=== PATIENT | female | born 1970 | race African-American/Black ===

== ENCOUNTER → 2019-03-20 | Outpatient (CLI) | payer OTHER ==
[2015-06-18 11:27] VITALS: BP 124/48
[~2019-03-20] MED LIST: ASPI-482 PO; MULT-208 PO
--- NOTE | 2019-03-20 13:02 | KCIC ---
Chest radiograph 03/20/2019 12:00 AM INDICATION: Chronic cough, nonsmoker COMPARISON: Chest radiograph June 15, 2004 TECHNIQUE: Frontal and lateral views of the chest are provided. FINDINGS: The cardiomediastinal silhouette is within normal limits. There are no pleural effusions. There is no pulmonary vascular congestion. There is no pneumothorax. The lungs are clear. No significant osseous abnormality is identified. IMPRESSION: No acute cardiopulmonary process. Electronically signed by: Sarah Paris MD (03/20/2019 12:59 PM) [facility]
== END | disposition home or self-care (01) ==
LOC: KCIC 11:55
PROVIDERS: ATTEND Family Medicine
DX: R05 Cough (principal)
CPT/HCPCS: 71046

== ENCOUNTER → 2019-04-08 | Outpatient (CLI) | payer OTHER ==
[2015-06-18 11:27] VITALS: BP 124/48
--- NOTE | 2019-04-09 11:09 | RAD ---
EXAM: DIGITAL SCREEN BILAT W/CAD HISTORY: routine screening evaluation. COMPARISON: 06/13/15 Bilateral full field craniocaudal, laterally exaggerated craniocaudal and mediolateral oblique images were obtained using digital technique. This study was interpreted with the benefit of Computerized Aided Detection (CAD). Breast Density: The breast parenchyma shows scattered fibroglandular densities. Breast parenchyma level B. FINDINGS: Well-circumscribed nodule in the superior, lateral left breast previous described as cyst is again seen. However there is now a new well-circumscribed nodular density in the retroareolar, slightly superior right breast approximately 5 cm from the nipple. No suspicious microcalcifications or architectural distortion is present in either breast. The visualized axillae are unremarkable. IMPRESSION: Well-circumscribed right breast mass which may represent a cystic lesion, findings for which additional imaging is advised. BI-RADS CATEGORY: 0 INCOMPLETE: NEEDS ADDITIONAL IMAGING EVALUATION AND/OR PRIOR MAMMOGRAMS FOR COMPARISON. RECOMMENDED FOLLOW-UP: ADD ADDITIONAL IMAGING The patient will be contacted to return for additional imaging to include ultrasound evaluation and a supplemental report will follow. PQRS compliance statement: Patient information was entered into a reminder system with a target due date for the next mammogram. Mammography is a sensitive method for finding small breast cancers, but it does not detect them all and is not a substitute for careful clinical examination. A negative mammogram does not negate a clinically suspicious finding and should not result in delay in biopsying a clinically suspicious abnormality. "Our facility is accredited by the [employer] Mammography Program." ANDERSOND
== END | disposition home or self-care (01) ==
LOC: MAMMO 08:42
PROVIDERS: ATTEND Family Medicine
DX: Z12.31 Encounter for screening mammogram for malignant neoplasm of breast (principal); N63.10 Unspecified lump in the right breast, unspecified quadrant
CPT/HCPCS: 77067

== ENCOUNTER → 2019-04-15 | Outpatient (CLI) | payer OTHER ==
[2015-06-18 11:27] VITALS: BP 124/48
--- NOTE | 2019-04-15 11:01 | RAD ---
RIGHT BREAST SONOGRAPHY Clinical indications: Further evaluation of new nodule seen on recent mammogram dated April 08, 2019. FINDINGS: High-resolution sonography of the 12:00 position of the right breast was performed. 4 cm from the nipple, a bilobed anechoic cyst is seen measuring 2.1 cm in greatest dimension. IMPRESSION: Mammographic finding corresponds to a benign cyst. BI-RADS Category 2 benign finding The patient information was entered into the data reminder system with a target due date for the next mammogram of April 09, 2020. He
== END | disposition home or self-care (01) ==
LOC: US 10:28
PROVIDERS: ATTEND Family Medicine
DX: N60.01 Solitary cyst of right breast (principal)
CPT/HCPCS: 76641

== ENCOUNTER → 2019-08-17 | Outpatient (CLI) | payer OTHER ==
[2015-06-18 11:27] VITALS: BP 124/48
--- NOTE | 2019-08-17 09:14 | RAD ---
EXAM: Abdomen sonogram. HISTORY: Pain. TECHNIQUE: Sonographic imaging of the abdomen was performed. COMPARISON: None. FINDINGS: The liver is mildly enlarged. No focal hepatic lesion is seen. The gallbladder is unremarkable. The common bile duct is normal in caliber. The pancreas is partially obscured due to bowel gas. The kidneys, spleen, aorta and inferior vena cava are unremarkable. IMPRESSION: 1. Mild hepatomegaly. 2. Otherwise, unremarkable abdomen sonogram. Electronically signed by: Tonya Ribeiro MD (08/17/2019 9:10 AM) [place] [id number]
== END | disposition home or self-care (01) ==
LOC: US 06:33
PROVIDERS: ATTEND Family Medicine
DX: R16.0 Hepatomegaly, not elsewhere classified (principal)
CPT/HCPCS: 76700

== ENCOUNTER 2019-09-23 20:19 | Emergency (ER) | payer OTHER ==
[~2019-09-23] VITALS: Ht 160 cm; Wt 104.3 kg
[2019-09-23] MEDS ORDERED: DEXAMETHASONE SOD PHOS 4 MG/ML VIAL IVP ONE (21:15)
[2019-09-23] MEDS ORDERED: MECLIZINE HCL 12.5 MG TABLET. PO ONE (21:15)
[2019-09-23] MEDS ORDERED: IV NORMAL SALINE 1000ML BAG 1,000 ML IV ONE ×2 (21:15)
[2019-09-23 21:22] LABS: BASO # 0.1 x10^3/uL (0.0-0.2); BASO % 1 % (0-3); EOS # 0.1 x10^3/uL (0.0-0.7); EOS % 1 % (0-3); HEMATOCRIT 40.7 % (36.0-47.0); HEMOGLOBIN 13.2 g/dL (12.0-15.5); LYMPH # 3.6 x10^3/uL (1.0-4.8); LYMPH % 43 % (24-48); MEAN CORPUSCULAR HEMOGLOBIN 25 pg (25-35); MEAN CORPUSCULAR HGB CONC 32 g/dL (31-37); MEAN CORPUSCULAR VOLUME 78 fL (79-100); MONO # 0.6 x10^3/uL (0.0-1.1); MONO % 8 % (0-9); NEUT % 48 % (31-73); PLATELET COUNT 272 x10^3/uL (140-400); RED BLOOD COUNT 5.23 x10^6/uL (3.50-5.40); RED CELL DISTRIBUTION WIDTH 14.8 % (11.5-14.5); WHITE BLOOD COUNT 8.4 x10^3/uL (4.0-11.0)
[2019-09-23 21:23] LABS: BILIRUBIN,URINE NEGATIVE (NEG); CLARITY,URINE CLEAR; COLOR,URINE YELLOW; NITRITE,URINE NEGATIVE (NEG); PH,URINE 5.5; PROTEIN,URINE NEGATIVE (NEG-TRACE); UROBILINOGEN,URINE 0.2 mg/dL (0.2 mg/dL)
--- NOTE | 2019-09-23 21:26 | PHYS DOC ---
Past Medical History Past Medical History: No Pertinent History, High Cholesterol, Other (Gastritis, Uterine cancer) Additional Past Medical Histor: GASTRITIS, UTERINE CA, CYSTS IN BREASTS Past Surgical History: Hysterectomy Additional Information: Never smoker Alcohol Use: None Drug Use: None Adult General Chief Complaint Chief Complaint: DIZZY/LIGHT HEADED HPI HPI Patient is a 49 year old F who presents to the ED for dizziness. Onset: Saturday09/20/2019. Duration: 30 mins. Patient states she has had 2 episodes since Saturday including today. Associated symptoms: left eye intermittent blurriness and nausea. Pt states that she feels like the "room is spinning". Pt denies LOC, GLOVER, fevers, chills, dysphagia, facial numbness, or weakness. 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 Review of Systems Review of Systems Constitutional: Denies fever or chills Eyes: Denies redness or eye pain, reports intermittent blurry vision in left eye HENT: Denies nasal congestion or sore throat Respiratory: Denies cough or shortness of breath Cardiovascular: Denies chest pain or palpitations GI: Denies abdominal pain; reports nausea : Denies dysuria or hematuria Musculoskeletal: Denies back pain or joint pain Integument: Denies rash or skin lesions Neurologic: Denies headache, focal weakness or sensory changes, reports dizzin ess, Complete systems were reviewed and found to be within normal limits, except as documented in this note. Current Medications Current Medications Current Medications Medications (Trade) Dose Ordered Sig/Vanessa Start Time Stop Time Status Last Admin Dose Admin Dexamethasone Sodium Phosphate (Decadron) 10 mg 1X ONCE 09/23/19 21:15 09/23/19 21:16 DC 09/23/19 21:24 10 MG Meclizine HCl (Antivert) 25 mg 1X ONCE 09/23/19 21:15 09/23/19 21:16 DC 09/23/19 21:23 25 MG Sodium Chloride 1,000 ml @ 1,000 mls/hr 1X ONCE 09/23/19 21:15 09/23/19 22:14 DC 09/23/19 21:24 1,000 MLS/HR Allergies Allergies Allergies Coded Allergies Type Severity Reaction Last Updated Verified No Known Drug Allergies 06/16/15 No Physical Exam Physical Exam Constitutional: Well developed, well nourished, no acute distress, non-toxic appearance HENT: Normocephalic, atraumatic, oropharynx moist Eyes: PERRL, EOMI, conjunctiva normal, no discharge, no nystagmus Neck: Normal range of motion, no tenderness, supple Cardiovascular: Heart rate normal, regular rhythm Lungs & Thorax: Bilateral breath sounds clear to auscultation, no wheezing Abdomen: Soft, no tenderness Skin: Warm, dry, no erythema, no rash Extremities: No tenderness, ROM intact, no edema Neurologic: Alert and oriented X 3, normal motor function, normal sensory function, no focal deficits noted, CN II-XII intact Psychologic: Affect normal, judgement normal Current Patient Data Vital Signs Vital Signs Date Time Temp Pulse Resp B/P (MAP) Pulse Ox O2 Delivery O2 Flow Rate FiO2 09/23/19 21:33 78 18 98 09/23/19 20:25 98.3 161/84 (109) Room Air 98.3 Lab Values Laboratory Tests Test 09/23/19 20:38 09/23/19 21:45 White Blood Count 8.4 x10^3/uL (4.0-11.0) Red Blood Count 5.23 x10^6/uL (3.50-5.40) Hemoglobin 13.2 g/dL (12.0-15.5) Hematocrit 40.7 % (36.0-47.0) Mean Corpuscular Volume 78 fL (79-100) L Mean Corpuscular Hemoglobin 25 pg (25-35) Mean Corpuscular Hemoglobin Concent 32 g/dL (31-37) Red Cell Distribution Width 14.8 % (11.5-14.5) H Platelet Count 272 x10^3/uL (140-400) Neutrophils (%) (Auto) 48 % (31-73) Lymphocytes (%) (Auto) 43 % (24-48) Monocytes (%) (Auto) 8 % (0-9) Eosinophils (%) (Auto) 1 % (0-3) Basophils (%) (Auto) 1 % (0-3) Neutrophils # (Auto) 4.0 x10^3/uL (1.8-7.7) Lymphocytes # (Auto) 3.6 x10^3/uL (1.0-4.8) Monocytes # (Auto) 0.6 x10^3/uL (0.0-1.1) Eosinophils # (Auto) 0.1 x10^3/uL (0.0-0.7) Basophils # (Auto) 0.1 x10^3/uL (0.0-0.2) Urine Color Yellow Urine Clarity Clear Urine pH 5.5 Urine Specific Orange 1.020 Urine Protein Negative mg/dL (NEG-TRACE) Urine Glucose (UA) Negative mg/dL (NEG) Urine Ketones (Stick) Negative mg/dL (NEG) Urine Blood Negative (NEG) Urine Nitrite Negative (NEG) Urine Bilirubin Negative (NEG) Urine Urobilinogen Dipstick 0.2 mg/dL (0.2 mg/dL) Urine Leukocyte Esterase Negative (NEG) Urine RBC 0 /HPF (0-2) Urine WBC Occ /HPF (0-4) Urine Squamous Epithelial Cells Occ /LPF Urine Bacteria 0 /HPF (0-FEW) Urine Mucus Slight /LPF Sodium Level 141 mmol/L (136-145) Potassium Level 3.6 mmol/L (3.5-5.1) Chloride Level 105 mmol/L (98-107) Carbon Dioxide Level 29 mmol/L (21-32) Anion Gap 7 (6-14) Blood Urea Nitrogen 9 mg/dL (7-20) Creatinine 0.6 mg/dL (0.6-1.0) Estimated GFR (Cockcroft-Gault) 127.5 BUN/Creatinine Ratio 15 (6-20) Glucose Level 92 mg/dL (70-99) Calcium Level 8.8 mg/dL (8.5-10.1) Magnesium Level 1.7 mg/dL (1.8-2.4) L Total Bilirubin 0.3 mg/dL (0.2-1.0) Aspartate Amino Transferase (AST) 13 U/L (15-37) L Alanine Aminotransferase (ALT) 19 U/L (14-59) Alkaline Phosphatase 69 U/L (46-116) Creatine Kinase 112 U/L (26-192) Creatine Kinase MB (Mass) 1.3 ng/mL (0.0-3.6) Creatine Kinase MB Relative Index 1.2 % (0-4) Troponin I Quantitative < 0.017 ng/mL (0.000-0.055) Total Protein 6.8 g/dL (6.4-8.2) Albumin 3.5 g/dL (3.4-5.0) Albumin/Globulin Ratio 1.1 (1.0-1.7) Laboratory Tests 09/23/19 20:38 Laboratory Tests 09/23/19 21:45 EKG EKG @2124, NSR @ 75bpm. No STEMI. No ST-T wave abnormalities. Radiology/Procedures Radiology/Procedures PROCEDURE: CT HEAD WO CONTRAST CT HEAD INDICATION: Dizziness COMPARISON: None Available. Exposure: One or more of the following individualized dose reduction techniques were utilized for this examination: 1. Automated exposure control 2. Adjustment of the mA and/or kV according to patient size 3. Use of iterative reconstruction technique TECHNIQUE: 5 mm contiguous axial images were obtained from the skull base to the vertex in both bone and soft tissue algorithm. FINDINGS: No abnormal attenuation within the brain parenchyma. No evidence of acute intracranial hemorrhage. No extra-axial fluid collections. No mass effect or midline shift. Ventricular size is appropriate. Basal cisterns are patent. No fractures identified.Wallace-white differentiation is preserved.Globes and orbits are within normal limits. Paranasal sinuses and mastoid air cells are clear. IMPRESSION: No acute intracranial findings. Electronically signed by: Jhon Martinez MD (09/23/2019 10:12 PM) [facility] Course & Med Decision Making Course & Med Decision Making Pertinent Labs and Imaging studies reviewed. (See chart for details) Patient presents with history of present illness and physical exam concerning for vertigo. No nystagmus noted on initial exam. Patient neurologically intact. No history of trauma. EKG stable. Labs obtained and posted to chart. H&H within normal limits. CT head without acute process. Symptomatic treatment provided with interval improvement of symptoms. Patient stable for discharge with outpatient follow-up with PCP/ENT. ENT referral provided. Discussed findings and plan with patient and family, who acknowledge understanding and agreement. Dragon Disclaimer Dragon Disclaimer This electronic medical record was generated, in whole or in part, using a voice recognition dictation system. Departure Departure Impression: Primary Impression: Dizziness Disposition: 01 HOME, SELF-CARE Condition: STABLE Referrals: Rosalina MEDLEY MD (PCP) ZACARIAS DUFFY MD Patient Instructions: Dizziness, Xiox-or-Lllb, Vertigo, [id number]-fh-Ubbx Scripts Meclizine Hcl (MECLIZINE HCL) 25 Mg Tablet 1 TAB PO PRN TID PRN for DIZZINESS, #30 TAB Prov: TONY ECHOLS DO 09/23/19 TONY ECHOLS DO Sep 23, 2019 21:26
[2019-09-23 21:32] LABS: BACTERIA,URINE 0 /HPF (0-FEW); RBC,URINE 0 /HPF (0-2); SQUAMOUS EPITHELIAL CELL,UR OCC /LPF; WBC,URINE OCC /HPF (0-4)
[2019-09-23 21:33] VITALS: BP 138/71
[2019-09-23 22:11] LABS: CALCIUM 8.8 mg/dL (8.5-10.1); CREATININE 0.6 mg/dL (0.6-1.0); GFR 127.5; POTASSIUM 3.6 mmol/L (3.5-5.1)
--- NOTE | 2019-09-23 22:15 | RAD ---
CT HEAD INDICATION: Dizziness COMPARISON: None Available. Exposure: One or more of the following individualized dose reduction techniques were utilized for this examination: 1. Automated exposure control 2. Adjustment of the mA and/or kV according to patient size 3. Use of iterative reconstruction technique TECHNIQUE: 5 mm contiguous axial images were obtained from the skull base to the vertex in both bone and soft tissue algorithm. FINDINGS: No abnormal attenuation within the brain parenchyma. No evidence of acute intracranial hemorrhage. No extra-axial fluid collections. No mass effect or midline shift. Ventricular size is appropriate. Basal cisterns are patent. No fractures identified.Wallace-white differentiation is preserved.Globes and orbits are within normal limits. Paranasal sinuses and mastoid air cells are clear. IMPRESSION: No acute intracranial findings. Electronically signed by: Jhon Martinez MD (09/23/2019 10:12 PM) [facility]
[2019-09-23 22:19] LABS: ALBUMIN 3.5 g/dL (3.4-5.0); ALBUMIN/GLOBULIN RATIO 1.1 (1.0-1.7); MAGNESIUM 1.7 mg/dL (1.8-2.4); TOTAL BILIRUBIN 0.3 mg/dL (0.2-1.0); TOTAL PROTEIN 6.8 g/dL (6.4-8.2)
[2019-09-23] MEDS ORDERED: MECL-75 PO (22:25)
--- NOTE | 2019-09-24 06:53 | EKG ---
[facility] [address] [place] [address] Test Date: 2019-09-23 Test Time: 21:24:57 Pat Name: ELIAS JONES Department: Room: Gender: F Manager Of Health: : 1970 Requested By: TONY ECHOLS Order Number: [id number] Reading MD: Measurements Intervals [place] Rate: 75 P: 40 WV: 150 QRS: -6 QRSD: 82 T: 0 QT: 396 QTc: 445 Interpretive Statements SINUS RHYTHM LEFTWARD AXIS OTHERWISE NORMAL ECG RI6.01 No previous ECG available for comparison
[2019-09-25] MEDS ORDERED: SERT100T PO (07:36)
[2019-09-25] MEDS ORDERED: BUSP10TA PO (07:36)
[2019-09-25] MEDS ORDERED: CRESTOR5 MG PO (07:36)
[2019-09-25] MEDS ORDERED: OMEP20CA16 PO (07:36)
== END 2019-09-23 22:58 | disposition home or self-care (01) ==
LOC: ER 20:19
DX: R42 Dizziness and giddiness (principal); R11.0 Nausea; H53.8 Other visual disturbances; E78.00 Pure hypercholesterolemia, unspecified
CPT/HCPCS: 36415; 70450; 80053; 81001; 82553; 83735; 84484; 85025; 93005; 96361; 96374; 99285; J1100; J7030; J8597

== ENCOUNTER → 2019-09-25 | Day surgery (SDC) | payer OTHER ==
[~2019-09-25] MED LIST changes: +BUSP10TA PO; +CRESTOR5 MG PO; +IV RINGERS,LACTATED 1000ML 1,000 ML IV SCH; +LIDOCAINE 2% PF 5 ML VIAL. ONE; +MECL-75 PO; +OMEP20CA16 PO; +PROPOFOL 20 ML IV ONE; +SERT100T PO
[2019-09-25 09:24] VITALS: BP 156/92
--- NOTE | 2019-09-28 16:06 | PATHOLOGY ---
[facility] Accession Number: [id number] . 01 Material submitted: . esophagus - DISTAL ESOPHAGUS BIOPSY. Modifiers: distal . 01 Clinical history: . GERD . 02 Diagnosis: Esophagus, distal, biopsy: - Squamocolumnar junctional mucosa; chronically inflamed. - Negative for intestinal metaplasia. (MAP:[facility] 09/28/2019) [facility] 09/28/2019 1241 Local . 02 Electronically signed: . Maximo Argueta MD, Pathologist NPI- [id number] . 01 Gross description: . Received in formalin labeled "Bony, Humble, distal esophagus, rule out Matias's," are multiple segments of ramirez soft tissue measuring 0.4 x 0.3 x 0.1 cm in aggregate dimensions. The specimen is filtered and entirely submitted in cassette A1. (TSD; 09/25/2019) TOB/TOB 09/25/2019 2218 Local . 02 Pathologist provided ICD-10: K20.9 . 02 CPT . 485211 Specimen Comment: A courtesy copy of this report has been sent to [phone], [phone] Specimen Comment: [id number] Specimen Comment: Report sent to / DR MEDLEY Performed at: 01 [facility] [address], [place], [place] [id number] MD Jamey Greene MD Phone: [phone] Performed at: 02 [facility] [address], [place] [id number] MD Kumar Ward MD Phone: [phone]
== END ==
LOC: SURG 07:11
PROVIDERS: ATTEND Internal Medicine Gastroenterology
DX: K21.0 Gastro-esophageal reflux disease with esophagitis (principal); Z72.89 Other problems related to lifestyle; Z90.710 Acquired absence of both cervix and uterus; Z98.51 Tubal ligation status; Z98.890 Other specified postprocedural states
CPT/HCPCS: 43239; 88305; J2001; J2704

== ENCOUNTER → 2021-04-27 | Outpatient (CLI) | payer OTHER ==
[2019-09-25 09:24] VITALS: BP 156/92
[~2021-04-27] MED LIST changes: -IV RINGERS,LACTATED 1000ML 1,000 ML IV SCH; -LIDOCAINE 2% PF 5 ML VIAL. ONE; -PROPOFOL 20 ML IV ONE
--- NOTE | 2021-04-27 12:12 | RAD ---
EXAM: BILATERAL DIGITAL SCREENING MAMMOGRAPHY. HISTORY: Routine mammographic screening. TECHNIQUE: Bilateral full field digital images were obtained in CC and MLO projections. Computer-aide d detection was applied. COMPARISON: 04/08/2019, 06/13/2015. COMPOSITION: B. There are scattered areas of fibroglandular density. FINDINGS: Previously noted masses bilaterally have decreased in size and likely reflect resolving cys ts. Scattered and coarse calcifications are benign. There are no suspicious masses, microcalcificatio ns or architectural distortion. The parenchymal pattern is stable. BI-RADS CATEGORY 2: Benign. RECOMMENDATION: 1. Routine screening mammography in one year. If mammography demonstrates dense breast tissue (heterogenously dense or extremely dense, category C or D), which could hide abnormalities, and if other risk factors for breast cancer have been identifi ed, supplemental screening tests that may be suggested by the ordering physician may be of benefit. D ense breast tissue, in and of itself, is a relatively common condition. Therefore, this information i s not provided to cause undue concern, but rather to raise awareness and to promote discussion with t he referring physician regarding the presence of other risk factors, in addition to dense breast tiss ue. The results of this mammography examination is provided to the patient and referring physician. T he patient should contact their referring physician if any questions or concerns exist regarding this report. PQRS compliance statement - Patient information was entered into a reminder system with a target due date for the next mammogram. "Our facility is accredited by the [employer] Mammography Program." Electronically signed by: Alecia Dumont MD (04/27/2021 12:10 PM) [id number]
== END ==
LOC: MAMMO 08:48
PROVIDERS: ATTEND Family Medicine
DX: Z12.31 Encounter for screening mammogram for malignant neoplasm of breast (principal)
CPT/HCPCS: 77067

== ENCOUNTER 2021-08-01 16:55 | Emergency (ER) | payer OTHER ==
[~2021-08-01] VITALS: Ht 157.5 cm; Wt 115.0 kg
[2021-08-01 18:46] VITALS: BP 152/106
--- NOTE | 2021-08-01 19:05 | ED.ADGEN ---
Past Medical History Past Medical History: No Pertinent History, High Cholesterol, Other Additional Past Medical Histor: GASTRITIS, UTERINE CA, CYSTS IN BREASTS Past Surgical History: Hysterectomy Smoking Status: Never Smoker Alcohol Use: None Drug Use: None General Adult EDM: Chief Complaint: ASTHMA HPI: HPI: Patient is a 50 year old female coming in for asthma exacerbation starting about 9 hours prior to arrival. 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 States cough is o ccasionally productive. Denies any fevers or chills. States that she feels like she has some occasional wheezes. Has a history of persistent asthma with frequent exacerbations. Has not butyryl nebulizer at home that she says made her feel worse. Is currently taking a rescue inhaler and Religion. Has had both of her Covid vaccines. No other complaints. Review of Systems: Review of Systems: All other systems within normal limits except for as noted in the HPI Current Medications: Current Medications Medications (Trade) Dose Ordered Sig/Vanessa Start Time Stop Time Status Last Admin Dose Admin Albuterol/ Ipratropium (Duoneb) 3 ml 1X ONCE 08/01/21 19:15 08/01/21 19:16 DC 08/01/21 19:37 3 ML Prednisone (Prednisone) 60 mg 1X ONCE 08/01/21 19:15 08/01/21 19:16 DC 08/01/21 19:11 60 MG Allergies: Allergies: Allergies Coded Allergies Type Severity Reaction Last Updated Verified No Known Drug Allergies 09/25/19 No Physical Exam: PE: Constitutional: Well developed, well nourished, no acute distress, non-toxic appearance. [] HENT: Normocephalic, atraumatic, bilateral external ears normal, nose normal. [] Eyes: PERRLA, conjunctiva normal, no discharge. [] Neck: No rigidity, supple, no stridor. [] Cardiovascular: Regular rate and rhythm, brisk cap refill [] Lungs & Thorax: Non labored symmetric respirations, no tachypnea or respiratory distress. No wheezes or rhonchi [] Abdomen: Soft, nondistended. Skin: Warm, dry, no erythema, no rash. [] Back: Unremarkable Extremities: No deformities, range of motion grossly intact, no lower extremity edema [] Neurologic: Alert and oriented X 3, no focal deficits noted. [] Psychologic: Affect normal, judgement normal, mood normal. [] Current Patient Data: Labs: Laboratory Tests Test 08/01/21 18:43 POC Urine HCG, Qualitative Hcg negative (Negative) Vital Signs: Vital Signs Date Time Temp Pulse Resp B/P (MAP) Pulse Ox O2 Delivery O2 Flow Rate FiO2 08/01/21 21:00 87 16 99 Room Air 08/01/21 18:46 98.4 152/106 (121) 98.4 EKG: EKG: [] Heart Score: C/O Chest Pain: No Risk Factors: Risk Factors: DM, Current or recent (<one month) smoker, HTN, HLP, family history of CAD, obesity. Risk Scores: Score 0 - 3: 2.5% MACE over next 6 weeks - Discharge Home Score 4 - 6: 20.3% MACE over next 6 weeks - Admit for Clinical Observation Score 7 - 10: 72.7% MACE over next 6 weeks - Early Invasive Strategies Radiology/Procedures: Radiology/Procedures: [facility] [address] [place], [place] [id number] IMAGING REPORT Signed PATIENT: ELIAS JONES MACCOUNT: [id number] : 1970 LOCATION: ER AGE: 50 SEX: F EXAM STATUS: REG ER ORD. PHYSICIAN: DARLENE ARANGO MD REASON: asthma, cough PROCEDURE: PORTABLE CHEST 1V EXAM: CHEST ONE VIEW. HISTORY: Asthma, cough. COMPARISON: 03/20/2019. FINDINGS: A frontal view of the chest is obtained. There are no confluent infiltrates. There is no pneumothorax or pleural effusion . The heart is not enlarged. The hemidiaphragms are not flattened. IMPRESSION: 1. No confluent infiltrates. Electronically signed by: Alecia Dumont MD (08/01/2021 9:03 PM) [id number] DICTATED and SIGNED BY: JING DUMONT MD DATE: 08/01/21 [id number] 0 [] Course & Med Decision Making: Course & Med Decision Making Pertinent Labs and Imaging studies reviewed. (See chart for details) [] Dragon Disclaimer: Dragon Disclaimer: This electronic medical record was generated, in whole or in part, using a voice recognition dictation system. Departure Departure Impression: Primary Impression: Asthma exacerbation Disposition: HOME / SELF CARE / HOMELESS Condition: IMPROVED Referrals: Rosalina MEDLEY MD (PCP) Patient Instructions: Asthma, Acute Bronchospasm Scripts Prednisone (PREDNISONE) 50 Mg Tablet 1 TAB PO DAILY for steroid for 4 Days, #4 TAB Prov: DARLENE ARANGO MD 08/01/21 Azithromycin (ZITHROMAX) 250 Mg Tablet 1 PKG PO UD for antibiotic for 5 Days, #6 TAB Prov: DARLENE ARANGO MD 08/01/21 DARLENE ARANGO MD Aug 01, 2021 19:05
[2021-08-01] MEDS ORDERED: predniSONE 20 MG TABLET PO ONE (19:15)
[2021-08-01] MEDS ORDERED: IPRATRPIUM/ALBUTEROL 0.5/2.5MG 3 ML NEBU. NEB ONE ×2 (19:15)
[2021-08-01] MEDS ORDERED: AZIT250T PO (20:56)
[2021-08-01] MEDS ORDERED: PRED50TA PO (20:56)
--- NOTE | 2021-08-01 21:05 | RAD ---
EXAM: CHEST ONE VIEW. HISTORY: Asthma, cough. COMPARISON: 03/20/2019. FINDINGS: A frontal view of the chest is obtained. There are no confluent infiltrates. There is no pneumothorax or pleural effusion. The heart is not en larged. The hemidiaphragms are not flattened. IMPRESSION: 1. No confluent infiltrates. Electronically signed by: Alecia Dumont MD (08/01/2021 9:03 PM) [id number]
== END 2021-08-01 21:09 | disposition home or self-care (01) ==
LOC: ER 16:55
DX: J45.901 Unspecified asthma with (acute) exacerbation (principal); E78.00 Pure hypercholesterolemia, unspecified
CPT/HCPCS: 71045; 81025; 94640; 99284; J7512

== ENCOUNTER → 2022-01-10 | Outpatient (CLI) | payer OTHER ==
[~2022-01-10] MED LIST changes: +AZIT250T PO; +PRED50TA PO
--- NOTE | 2022-01-10 16:37 | KCIC ---
EXAM: 1. Cervical spine 4 views. 2. Bilateral shoulders 3 views. HISTORY: Neck pain, bilateral shoulder pain. COMPARISON: None. FINDINGS: Cervical alignment is maintained. No fractures are identified. There is no prevertebral sof t tissue swelling. Intervertebral disc heights are maintained. There is some ossification of anterior longitudinal ligament at C4-5. No fractures are identified at either shoulder. Acromioclavicular and glenohumeral joint spaces and a lignment are maintained bilaterally. IMPRESSION: 1. No clear degenerative change within the cervical spine or either shoulder for patient age. Electronically signed by: Alecia Dumont MD (01/10/2022 4:34 PM) [id number]
== END ==
LOC: KCIC 10:17
PROVIDERS: ATTEND Family Medicine
DX: M54.2 Cervicalgia (principal); M25.511 Pain in right shoulder; M25.512 Pain in left shoulder
CPT/HCPCS: 72040